=== PATIENT | female | born 1945 | race Caucasian/White ===

== ENCOUNTER 2017-11-27 10:22 | Observation (INO) | payer MEDICARE, OTHER ==
[2017-11-27 11:05] LABS: ADD MAN DIFF? NO
[2017-11-27 11:17] LABS: BASOPHILS % 0.4 % (0.0-2.0); EOSINOPHILS # 0.1 10^3/ul (0.0-0.5); EOSINOPHILS % 2.2 % (0.0-7.0); HEMATOCRIT 34.1 % (37.0-47.0); HEMOGLOBIN 11.3 g/dl (12.0-16.0); LYMPHOCYTES # 2.1 10^3/ul (0.8-2.9); LYMPHOCYTES % 38.4 % (15.0-51.0); MEAN CORPUSCULAR HEMOGLOBIN 31.2 pg (29.0-33.0); MEAN CORPUSCULAR HGB CONC 33.1 g/dl (32.0-37.0); MEAN CORPUSCULAR VOLUME 94.2 fl (82.0-101.0); MEAN PLATELET VOLUME 10.6 fl (7.4-10.4); MONOCYTE # 0.4 10^3/ul (0.3-0.9); MONOCYTES % 7.1 % (0.0-11.0); NEUTROPHIL # 2.8 10^3/ul (1.6-7.5); NEUTROPHILS % 51.5 % (39.0-77.0); PLATELET COUNT 167 10^3/UL (140-415); RED BLOOD COUNT 3.62 10^6/ul (4.20-5.40); RED CELL DISTRIBUTION WIDTH 13.3 % (11.5-14.5)
[2017-11-27 11:17] LABS: WHITE BLOOD COUNT 5.5 10^3/ul (4.8-10.8)
[2017-11-27 11:36] LABS: HEMOGLOBIN A1C 5.6 % (0-5.9)
[2017-11-27] MEDS: SOD CHLORIDE 0.9% 1,000 ML IV ×2 (11:44→12:36)
[2017-11-27 11:45] LABS: INR 1.14; PROTIME 14.8 Sec (11.9-14.9); PT RATIO 1.2
[2017-11-27 11:46] LABS: PARTIAL THROMBOPLASTIN TIME 31.2 Sec (25.0-35.0)
[2017-11-27 12:03] LABS: LACTIC ACID 2.5 mmol/L (0.5-2.0)
[2017-11-27 12:09] LABS: ALANINE AMINOTRANSFERASE 26 IU/L (13-69); ALKALINE PHOSPHATASE 39 IU/L (42-121); ANION GAP 12 (8-16); ASPARTATE AMINO TRANSFERASE 19 IU/L (15-46); BILIRUBIN,INDIRECT 0.2 mg/dl (0-1.1); BILIRUBIN,TOTAL 0.2 mg/dl (0.2-1.3); BLOOD UREA NITROGEN 9 mg/dl (7-20); CALCIUM 9.7 mg/dl (8.4-10.2); CARBON DIOXIDE 25 mmol/L (21-31); CHLORIDE 107 mmol/L (97-110); CHOL/HDL RATIO 2.5 RATIO; CHOLESTEROL 148 mg/dl (100-200); CREATINE KINASE 96 IU/L (23-200); CREATININE 1.06 mg/dl (0.44-1.00); GLUCOSE 86 mg/dl (70-220); HDL CHOLESTEROL 59 mg/dl (33-92); LDL CHOLESTEROL,CALCULATED 80 mg/dl; POTASSIUM 3.9 mmol/L (3.5-5.1); SODIUM 140 mmol/L (135-144); TOTAL PROTEIN 6.1 g/dl (6.1-8.1); TRIGLYCERIDES 46 mg/dl (0-149)
[2017-11-27 12:21] LABS: CK INDEX 4.4; CK-MB 4.18 ng/ml (0.0-2.4)
[2017-11-27 12:26] LABS: TROPONIN-I < 0.012 ng/ml (0.00-0.12)
[2017-11-27 12:37] LABS: ADD UMIC NO; UR AMORPHOUS CRYSTAL FEW /HPF (NONE SEEN); UR ASCORBIC ACID NEGATIVE (NEGATIVE); UR BACTERIA FEW /HPF (NONE SEEN); UR BILIRUBIN (Dip) NEGATIVE (NEGATIVE); UR BLOOD (Dip) NEGATIVE (NEGATIVE); UR CLARITY SLIGHTLY CLOUDY (CLEAR); UR COLOR YELLOW (YELLOW); UR GLUCOSE (Dip) NEGATIVE (NEGATIVE); UR KETONES (Dip) NEGATIVE (NEGATIVE); UR LEUKOCYTE ESTERASE (Dip) NEGATIVE Leu/ul (NEGATIVE); UR MUCUS FEW /HPF (NONE SEEN); UR NITRITE (Dip) NEGATIVE (NEGATIVE); UR RBC 0 /HPF (0-5); UR SPECIFIC GRAVITY (Dip) 1.023 (1.003-1.030); UR SQUAMOUS EPITHELIAL CELL FEW /HPF (FEW); UR TOTAL PROTEIN (Dip) NEGATIVE (NEGATIVE); UR UROBILINOGEN (Dip) NEGATIVE (NEGATIVE); UR WBC 0 /HPF (0-5)
[2017-11-27] MEDS ORDERED: ONDANSETRON 4 MG INJ IV (13:30)
[2017-11-27] MEDS ORDERED: hydrALAzine (1 MG/ML) IV SYG IV (14:30)
[2017-11-27] MEDS: LOSARTAN 50 MG TAB PO (15:17)
[2017-11-27] MEDS: CHOLECALCIFEROL 1,000 UNIT TAB PO (15:17)
[2017-11-27] MEDS: ASPIRIN (EC) 81 MG TAB PO (15:17)
[2017-11-27] MEDS: hydrALAzine 20 MG INJ IV (15:18)
[2017-11-27] MEDS: DOCUSATE SODIUM 100 MG CAP PO ×2 (15:25→23:37)
[2017-11-27] MEDS: PANTOPRAZOLE SODIUM 20 MG TABEC PO (15:25)
[2017-11-27 15:44] LABS: LACTIC ACID 1.7 mmol/L (0.5-2.0)
[2017-11-27] MEDS: LORAZEPAM 2 MG INJ IV ×3 (16:10→21:28)
[2017-11-27 17:41] LABS: PHOSPHORUS 3.5 mg/dl (2.5-4.9)
[2017-11-27 17:41] LABS: CREATINE KINASE 106 IU/L (23-200); MAGNESIUM 1.9 mg/dl (1.7-2.5)
[2017-11-27 17:54] LABS: HEMOGLOBIN A1C 5.6 % (0-5.9)
[2017-11-27 17:54] LABS: CK-MB 4.27 ng/ml (0.0-2.4)
[2017-11-27 17:55] LABS: TROPONIN-I < 0.012 ng/ml (0.00-0.12)
[2017-11-27 21:42] LABS: CREATINE KINASE 109 IU/L (23-200)
[2017-11-27 21:56] LABS: CK INDEX 3.6; CK-MB 3.96 ng/ml (0.0-2.4); TROPONIN-I 0.022 ng/ml (0.00-0.12)
[2017-11-27] MEDS: CARBIDOPA/LEVODOPA (25/100) TAB PO (21:59)
[2017-11-27] MEDS: GABAPENTIN 100 MG CAP PO (21:59)
[2017-11-27] MEDS: ATORVASTATIN 20 MG TAB PO (22:01)
[2017-11-27] MEDS: ACETAMINOPHEN 325 MG TAB PO (23:36)
[2017-11-28] MEDS: PANTOPRAZOLE SODIUM 20 MG TABEC PO (05:57)
[2017-11-28 08:37] LABS: ADD MAN DIFF? NO
[2017-11-28 08:39] LABS: BASOPHILS % 0.1 % (0.0-2.0); EOSINOPHILS # 0.1 10^3/ul (0.0-0.5); EOSINOPHILS % 0.9 % (0.0-7.0); HEMATOCRIT 33.8 % (37.0-47.0); HEMOGLOBIN 11.4 g/dl (12.0-16.0); LYMPHOCYTES # 1.7 10^3/ul (0.8-2.9); MEAN CORPUSCULAR HGB CONC 33.7 g/dl (32.0-37.0); MEAN CORPUSCULAR VOLUME 91.8 fl (82.0-101.0); MEAN PLATELET VOLUME 10.8 fl (7.4-10.4); MONOCYTE # 0.6 10^3/ul (0.3-0.9); MONOCYTES % 8.2 % (0.0-11.0); NEUTROPHIL # 4.7 10^3/ul (1.6-7.5); NEUTROPHILS % 66.5 % (39.0-77.0); PLATELET COUNT 159 10^3/UL (140-415); RED BLOOD COUNT 3.68 10^6/ul (4.20-5.40); RED CELL DISTRIBUTION WIDTH 13.2 % (11.5-14.5)
[2017-11-28 09:08] LABS: ANION GAP 13 (8-16); BLOOD UREA NITROGEN 8 mg/dl (7-20); CALCIUM 9.1 mg/dl (8.4-10.2); CARBON DIOXIDE 26 mmol/L (21-31); CHLORIDE 105 mmol/L (97-110); CHOL/HDL RATIO 2.3 RATIO; CHOLESTEROL 142 mg/dl (100-200); CREATININE 0.76 mg/dl (0.44-1.00); GLUCOSE 90 mg/dl (70-220); HDL CHOLESTEROL 60 mg/dl (33-92); LDL CHOLESTEROL,CALCULATED 72 mg/dl; POTASSIUM 3.8 mmol/L (3.5-5.1); SODIUM 140 mmol/L (135-144); TRIGLYCERIDES 50 mg/dl (0-149)
[2017-11-28] MEDS: DOCUSATE SODIUM 100 MG CAP PO (09:24)
[2017-11-28] MEDS: GABAPENTIN 100 MG CAP PO ×2 (09:24→12:59)
[2017-11-28] MEDS: ASPIRIN (EC) 81 MG TAB PO (09:24)
[2017-11-28] MEDS: LOSARTAN 50 MG TAB PO (09:25)
[2017-11-28] MEDS: CHOLECALCIFEROL 1,000 UNIT TAB PO (10:18)
[2017-11-28] MEDS: CARBIDOPA/LEVODOPA (25/100) TAB PO ×2 (10:20→12:59)
[2017-11-28] MEDS: PIPER-TAZO 3.375 GM IV (PMX) 100 ML IVPB ×2 (10:33→14:01)
== END 2017-11-28 17:50 | disposition home health service (06) ==
LOC: MS4 13:13 → E/R 10:22
PROVIDERS: Family Medicine
DX: R55 Syncope and collapse (principal); N39.0 Urinary tract infection, site not specified; E86.0 Dehydration; D64.9 Anemia, unspecified; E78.5 Hyperlipidemia, unspecified; G20 Parkinson's disease; F02.80 Dementia in other diseases classified elsewhere, unspecified severity, without behavioral disturbance, psychotic disturbance, mood disturbance, and anxiety; I10 Essential (primary) hypertension; Z79.82 Long term (current) use of aspirin
CPT/HCPCS: 70450; 71045; 80048; 80053; 80061; 81001; 81003; 82550; 82553; 83036; 83605; 83735; 84100; 84443; 84484; 85025; 85610; 85730; 86850; 86900; 86901; 87086; 93005; 93306; 96374; 96375; 96376; 97162; 99285-25; G0378